=== PATIENT | female | born 1985 | race Caucasian/White ===

== ENCOUNTER 2023-11-13 10:12 | Outpatient (RCR) | payer OTHER, SELFPAY | END 2023-11-13 23:59 | disposition home or self-care (01) | LOC: RPT 10:12 | PROVIDERS: ATTENDING PHYSICIAN Nurse Practitioner Family | DX: N39.3 Stress incontinence (female) (male) (principal); R10.2 Pelvic and perineal pain; Z73.6 Limitation of activities due to disability; M62.89 Other specified disorders of muscle; M62.81 Muscle weakness (generalized); R27.8 Other lack of coordination; M54.9 Dorsalgia, unspecified | CPT/HCPCS: 97140; 97162; 97530 ==

== ENCOUNTER 2023-12-10 09:08 | Outpatient (RCR) | payer OTHER, SELFPAY | END 2023-12-10 23:59 | disposition home or self-care (01) | LOC: RPT 09:08 | PROVIDERS: ATTENDING PHYSICIAN Nurse Practitioner Family | DX: N39.3 Stress incontinence (female) (male) (principal); R10.2 Pelvic and perineal pain; Z73.6 Limitation of activities due to disability; M62.89 Other specified disorders of muscle; M62.81 Muscle weakness (generalized); R27.8 Other lack of coordination | CPT/HCPCS: 97014; 97112; 97140; 97530 ==

== ENCOUNTER 2024-01-12 08:08 | Outpatient (RCR) | payer OTHER, SELFPAY | END 2024-01-12 23:59 | disposition home or self-care (01) | LOC: RPT 08:08 | PROVIDERS: ATTENDING PHYSICIAN Nurse Practitioner Family | DX: N39.3 Stress incontinence (female) (male) (principal); R10.2 Pelvic and perineal pain; M62.89 Other specified disorders of muscle; M62.81 Muscle weakness (generalized); R27.8 Other lack of coordination | CPT/HCPCS: 97014; 97112; 97140; 97530 ==

== ENCOUNTER 2024-02-11 06:30 | Outpatient (RCR) | payer OTHER, SELFPAY | END 2024-02-11 23:59 | disposition home or self-care (01) | LOC: RPT 06:30 | PROVIDERS: ATTENDING PHYSICIAN Nurse Practitioner Family | DX: N39.3 Stress incontinence (female) (male) (principal); R10.2 Pelvic and perineal pain; Z73.6 Limitation of activities due to disability; M62.89 Other specified disorders of muscle; M62.81 Muscle weakness (generalized); R27.8 Other lack of coordination | CPT/HCPCS: 97014; 97112; 97140; 97530 ==

== ENCOUNTER 2024-02-18 08:08 | Outpatient (RCR) | payer OTHER, SELFPAY | END 2024-02-18 23:59 | disposition home or self-care (01) | LOC: RPT 08:08 | PROVIDERS: ATTENDING PHYSICIAN Nurse Practitioner Family | DX: N39.3 Stress incontinence (female) (male) (principal); R10.2 Pelvic and perineal pain; Z73.6 Limitation of activities due to disability | CPT/HCPCS: 97530 ==